=== PATIENT | male | born 1990 | race Caucasian/White ===

== ENCOUNTER 2024-10-19 12:10 | Inpatient (IN) | payer MEDICAID, SELFPAY ==
--- NOTE | ~2024-10-19 | XR_ITS ---
CLINICAL HISTORY: ? aspiration 1 view chest x-ray Comparison: None provided Findings: The lungs are clear. Normal size heart. No acute fracture. IMPRESSION: 1. No acute findings. This document has been electronically signed by: Babatunde Melgar MD on 10/19/2024 14:45:21
--- NOTE | ~2024-10-19 | CT_ITS ---
CLINICAL HISTORY: unknown fall, AMS CT head without contrast Comparison: None provided Findings: No intra-axial mass, midline shift, hydrocephalus, or acute hemorrhage. No significant atrophy-like change or white matter disease. The visualized paranasal sinuses and mastoid air cells are normal. The orbits are within normal limits. There is no acute fracture. Mucosal thickening of the right maxillary sinus. IMPRESSION: No acute intracranial findings identified. Right maxillary sinus disease. This document has been electronically signed by: Babatunde Melgar MD on 10/19/2024 15:18:16
[2024-10-19 12:27] VITALS: BP 144/100; PULSE 86; RESP 20; TEMP 35.8; O2SAT 98; BMI 20.5
[2024-10-19 12:39] VITALS: BP 144/100; PULSE 90; RESP 18; TEMP 36.1; O2SAT 98
--- NOTE | 2024-10-19 12:52 | PC.NURSE ---
patient presented to the ED after being [place] by ems [place]. patient presents to ED unable to participate in much of triage. patient states he drank a lot . patient changed out of clothes into hospital attire, belongings at bedside at this time. patient had episode of vomiting, unsure if aspirated, CXR ordered. patient sat up and cleaned up.
[2024-10-19 13:07] LABS: MANUAL DIFF FLAG NO
[2024-10-19 13:08] LABS: Hematocrit 40.4 % (42.0-52.0); Hemoglobin 14.9 g/dl (14.0-18.0); Imm Gran Abs Auto 0.02 X10*3/uL (0.00-0.03); Imm Gran Pct Auto 0.4 % (0.0-0.4); Lymphocytes Absolute Auto 1.2 X10*3/uL (1.2-4.9); Mean Corpuscular HGB Conc 36.9 g/dl (31.0-36.0); Mean Corpuscular Hemoglobin 33.9 pg (27.0-33.0); Mean Corpuscular Volume 92.0 fL (80.0-98.0); NRBC Abs Auto 0.000 X10*3/uL (0.0-0.012); NRBC Pct Auto 0.0 /100WBC (0.0-0.2); Platelet Count 244 X10*3/uL (160-400); Red Blood Count 4.39 X10*6/uL (4.60-5.80); White Blood Count 5.5 X10*3/uL (4.8-10.8)
--- NOTE | 2024-10-19 13:18 | ECG_ITS ---
Test Reason : ETOH Blood Pressure : */* mmHG Vent. Rate : 94 BPM Atrial Rate : 94 BPM P-R Int : 154 ms QRS Dur : 80 ms QT Int : 348 ms P-R-T Axes : 50 86 57 degrees QTcB Int : 435 ms Normal sinus rhythm Normal ECG No previous ECGs available Referred By: Reyna Washington Electronically Signed By: DUSTY MCMULLEN
--- NOTE | 2024-10-19 13:20 | ED.GENADULT ---
HPI - General Adult General Chief complaint: ETOH/Substance Use Stated complaint: ETOH Time Seen by Provider: 10/19/24 13:17 Source: patient, EMS, RN notes reviewed and old records reviewed Mode of arrival: EMS Limitations: altered mental status History of Present Illness ED Provider: Padmini HPI narrative: Patient is a 34-year-old male with history of alcohol use disorder with alcohol withdrawal, opioid use disorder presenting to the emergency department after being found passed out at a bus stop. Patient altered upon arrival to the emergency department but does report drinking ?a lot. ? He denies drug use. Unable to obtain full HPI due to altered mental status. complaint: Alcohol intoxication Related Data Allergies Allergy/AdvReac Type Severity Reaction Status Date / Time Unable to Assess Allergy Verified 10/19/24 12:29 Review of Systems Review of Systems: As per HPI Yes all other systems are reviewed and are negative Constitutional: Constitutional: Reports as per HPI Neurologic: Reports confusion Psychiatric: Psychiatric: Reports confusion PMFSH Social History Social History Smoked in Last 30 Days: Yes Use of substances other than those prescribed or required for medical reasons: Yes Substance Use Type: Marijuana Substance Use Frequency: Daily Advance Directives: No Advance Directives Information Provided: Yes Do you have a plan to hurt others: No Plan Physical Exam ED Vital Signs: Vital Signs - 24 hr 10/19/24 12:27 10/19/24 12:39 Temperature 96.5 F L 96.9 F Pulse Rate 86 90 Respiratory Rate 20 18 Blood Pressure 144/100 H 144/100 H Pulse Oximetry 98 98 Oxygen Delivery Method Room Air Room Air BMI result Body Mass Index 20.5 Vital signs have been reviewed and appear to be correct. Blood pressure elevated. Heart rate normal. Respiratory rate normal. Temperature normal. Oxygen saturation normal. 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) and lethargic Orientation/consciousness: oriented to person, confusion and lethargic Limitations: altered mental status HENMT Head: Yes normocephalic and Yes atraumatic Ears: hearing grossly normal bilaterally and external ears normal General nose exam: Normal external nose present Face and sinus: Yes face symmetric Mouth: oropharynx normal and moist mucous membranes Throat: Yes uvula midline Eyes Pupils: Equal, round and reactive pupils present Neck Neck: Yes normal visual inspection and Yes supple Resp Effort & Inspection: normal respiratory effort and able to speak in complete sentences Auscultation: clear to auscultation bilaterally Cardio Rate: regular rate Rhythm: regular rhythm Heart sounds: S1 normal heart sound present and S2 normal heart sound present GI Palpation (GI): Soft to palpation and nontender Auscultation: normoactive bowel sounds General: Yes no CVA tenderness Back/Spine/Pelvis Back: no CVA tenderness Skin General skin exam: elasticity normal and turgor normal Neuro General: oriented to person, moves all extremities, no focal motor deficits, CN's II-XI intact bilaterally and confusion Cranial nerves: Yes Equal, round and reactive pupils present Cognition (Neuro): normal cognition Extrem General: Yes full ROM, Yes no pedal edema and Yes no calf tenderness Psych Appearance: disheveled Medications Administered Generic Name Dose Route Start Last Admin Trade Name Freq PRN Reason Stop Dose Admin Phenobarbital Sodium 312 mg 10/19/24 17:00 10/19/24 16:24 Phenobarbital Sodium 130 Mg/Ml Im Once IM 10/19/24 17:01 312 mg ONCE ONE Administration Protocol Discontinued Medications Generic Name Dose Route Start Last Admin Trade Name Freq PRN Reason Stop Dose Admin Potassium Chloride 40 meq 10/19/24 15:57 10/19/24 16:23 Potassium Chloride Packet 20 Meq Packet PO 10/19/24 15:58 40 meq ONCE ONE Administration Medical Decision Making Medical Decision Making MDM Narrative: Patient is a 34-year-old male with history of alcohol use disorder with alcohol withdrawal, opioid use disorder presenting to the emergency department after being found passed out at a bus stop. On exam patient is lethargic, A+Ox1, VS WNL, afebrile, physical exam findings as above. Given reported symptoms and physical exam findings, initial differential includes but is not limited to drug or alcohol intoxication or withdrawal, electrolyte abnormality, ICH. Review of electronic medical records from [facility] reveal that patient was recently seen there the past 2 days for alcohol intoxication. Was admitted on 10/17 but left against medical advice once clinically sober. Return to the emergency department yesterday and was discharged from the ED. shortly after arrival to the ED patient vomited and was noted to be coughing, chest x-ray ordered by RN. Patient repeatedly requesting phenobarbital. Advised patient he is currently intoxicated, will hold off on phenobarbital at this time. Labs notable for ethanol of 293, mildly elevated transaminases and alk phos but denies abdominal pain, mild hypokalemia, PO potassium ordered. X-ray chest notable for no evidence of pneumonia. CT head without evidence of ICH or skull fracture. My interpretation is in agreement with the radiologist's interpretation. RN now stating that patient is again requesting phenobarbital. CIWA of 13, phenobarb, thiamine, IV fluids ordered. Case discussed with Gurjit Holman NP hospitalist who accepts admission. Differential Diagnosis Differential Diagnoses: The differential diagnosis associated with the presentation includes as per [facility] Admission/Observation Consideration of admission/observation: Escalation of care including admission/observation considered Consult Healthcare Provider Management of the patient was discussed with: Hospitalist Lab Data [facility] Lab Attestation statement: I reviewed the patient's lab results. as per [facility] 10/19/24 13:01 10/19/24 13:01 Labs: Lab Results 10/19/24 Range/Units 13:01 WBC 5.5 (4.8-10.8) X10*3/uL RBC 4.39 L (4.60-5.80) X10*6/uL Hgb 14.9 (14.0-18.0) g/dl Hct 40.4 L (42.0-52.0) % MCV 92.0 (80.0-98.0) fL MCH 33.9 H (27.0-33.0) pg MCHC 36.9 H (31.0-36.0) g/dl RDW 13.1 (11.0-16.0) % Plt Count 244 (160-400) X10*3/uL MPV 8.6 L (9.4-12.4) fL Immature Gran % (Auto) 0.4 (0.0-0.4) % Neut % (Auto) 68.1 (45-73) % Lymph % (Auto) 21.2 (20-40) % [place] % (Auto) 9.6 (2-11) % Eos % (Auto) 0.2 (0-4) % Baso % (Auto) 0.5 (0-2) % Lymph # (Auto) 1.2 (1.2-4.9) X10*3/uL [place] # (Auto) 0.5 (0.1-1.2) X10*3/uL Eos # (Auto) 0.0 (0.0-0.4) X10*3/uL Baso # (Auto) 0.0 (0.0-0.2) X10*3/uL Abs Immat Gran (auto) 0.02 (0.00-0.03) X10*3/uL Absolute Neuts (auto) 3.8 (2.0-8.3) x10*3/uL Absolute Nucleated RBC 0.000 (0.0-0.012) X10*3/uL Nucleated RBC % (auto) 0.0 (0.0-0.2) /100WBC Sodium 144 (135-145) mmol/L Potassium 3.1 L (3.3-5.1) mmol/L Chloride 105 (96-108) mmol/L Carbon Dioxide 23 (22-29) mmol/L Anion Gap 19 (12-20) BUN 5 L (9-16) mg/dL Creatinine 0.69 (0.5-1.4) mg/dL Estim Creat Clear Calc 137.1 Estimated GFR > 60 Random Glucose 124 H (60-115) mg/dL Calcium 9.0 (8.4-10.2) mg/dL Magnesium 2.3 (1.6-2.6) mg/dL Total Bilirubin 0.3 (0.0-1.0) mg/dL AST 97 H (5-37) U/L ALT 91 H (0-40) U/L Alkaline Phosphatase 182 H (39-117) U/L Total Protein 7.4 (6.5-8.0) g/dL Albumin 4.5 (3.5-5.0) g/dL Ethyl Alcohol 293 mg/dL Independent Interpretation I performed an independent interpretation of an: Plain X-Ray and CT Scan Interpretation: Chest x-ray without evidence of pneumonia. CT head without evidence of ICH or skull fracture. Radiology Impression Discussion of test interpretation with radiology: I have reviewed the radiologist's reading. Radiologist Impression: 1 view chest x-ray Comparison: None provided Findings: The lungs are clear. Normal size heart. No acute fracture. IMPRESSION: 1. No acute findings. CT head without contrast Comparison: None provided Findings: No intra-axial mass, midline shift, hydrocephalus, or acute hemorrhage. No significant atrophy-like change or white matter disease. The visualized paranasal sinuses and mastoid air cells are normal. The orbits are within normal limits. There is no acute fracture. Mucosal thickening of the right maxillary sinus. IMPRESSION: No acute intracranial findings identified. Right maxillary sinus disease. External Record Review External record reviewed: Inpatient record, Office record and Outpatient record Discharge Plan Discharge Patient Disposition: Admitted As Inpatient Print Language: Canadian
[2024-10-19 13:38] LABS: Anion Gap 19 (12-20)
[2024-10-19 13:42] LABS: Alanine Aminotransferase 91 U/L (0-40); Albumin Level 4.5 g/dL (3.5-5.0); Alkaline Phosphatase 182 U/L (39-117); Aspartate Amino Transferase 97 U/L (5-37); Blood Urea Nitrogen 5 mg/dL (9-16); Calcium 9.0 mg/dL (8.4-10.2); Carbon Dioxide 23 mmol/L (22-29); Chloride 105 mmol/L (96-108); Creatinine Clr Calc Pharmacy 137.1; Estimated Glomerular Filt Rate > 60; Magnesium 2.3 mg/dL (1.6-2.6); Potassium 3.1 mmol/L (3.3-5.1); Sodium 144 mmol/L (135-145); Total Protein 7.4 g/dL (6.5-8.0)
--- NOTE | 2024-10-19 13:44 | MHC.EDTECH ---
EKG done by Devin hansenchief knowledge officer
--- OUTSIDE RECORDS SUMMARY | 2024-10-19 15:30 | XMS_ITS | Clinical Summary ---
Author Organization [employer] Address [address] [place] [address] [address] [place] [address] Care Team Providers Care Pastry Baker Name Role Phone Marvin Pérez MD Primary Care Provider [phone] Allergies No known active allergies Medications nicotine polacrilex (Commit) 4 MG lozengeIndicati ons:Smoking Dissolve 1 lozenge (4 mg) in the mouth every 2 (two) hours if needed for smoking cessation. 100 lozenge 02/27/2023 Active famotidine (Pepcid) 20 MG tabletIndicatio ns:Epigastric pain Take 1 tablet (20 mg) by mouth 2 times daily. 60 tablet 11 10/04/2023 Active Active Problems No known active problems Encounters Date Type Department Care Team Description 08/01/[address] [facility] MEDICINE [address] [place] [address] Marvin Pérez MD Nurse Triage 07/23/[address] [facility] PEDS [address] [place] [address] Marvin Pérez MD Nurse Triage from Last 3 Months Immunizations Immunization Administration Dates Next Due Tdap 08/16/2016 Family History Medical History Relation Name Comments Heart attack Father No Known Problems Maternal Grandfather Alcohol abuse Mother Cirrhosis Mother Depression Mother Relation Name Status Comments Father Maternal Grandfather Mother Social History Tobacco Use Types Packs/Day Years Used Date Smoking Tobacco: Every Day Cigarettes 1 15 Smokeless Tobacco: Never Tobacco Cessation:Ready to Q uit: Yes; Counseling Given: Yes Depression Answer Date Recorded Patient Health Questionnaire-9 Score 2 02/27/2023 Patient Health Questionnaire-9 Score 2 02/27/2023 Last PHQ-9: Questionnaire Data Not on file 0 02/27/2023 Housing Stability Answer Date Recorded What is your housing situation today? I have clementina sandhu 02/26/[address] you li ve. Do you have problems with any of the following? None of the above 02/26/2023 Food Insecurity Answer Date Recorded Within the past 12 months, y ou worried that your food would run out before you got money to buy more: Never True 02/26/2023 Within the past 12 months,th e food you bought just didn't last and you didn't have enough money to get more: Never True Transportation Answer Date Recorded In the past 12 months, has l ack of transportation kept you from medical appts, meetings, work or from getting things needed for daily living? No 02/26/2023 Utilities Answer Date Recorded In the past 12 months, has t he electric, gas, oil or water company threatened to shut off services in your home? No 02/26/2023 Depression Answer Date Recorded Patient Health Questionnaire-2 Score 0 02/27/2023 Sex and Gender Information Value Date Recorded Sex Assigned at Male 12/05/2021 10:31 AM EDT Legal Sex Male 10:31 AM EDT Gender Identity Male 12/05/2021 10:31 AM EDT Sexual Orientation Straight 12/05/2021 10 :31 AM EDT Last Filed Vital Signs Vital Sign Reading Time Taken Comments Blood Pressure 150/89 10/04/2023 10:32 AM EDT Pulse 114 10/04/2023 10:32 AM EDT Temperature 36.7 C (98 F) 10/04/2023 10:32 AM EDT Respiratory Rate 14 10/04/2023 10:32 AM EDT Oxygen Saturation 98% 10/04/2023 10:32 AM EDT Inhaled Oxygen Concentration - - Weight 76.7 kg (169 lb 3.2 oz) 10/04/2023 10:32 AM EDT Height 167.6 cm (5' 6 ) 10/04/2023 10:32 AM EDT Body Mass Index 27.31 10/04/2023 10:32 AM EDT Plan of Treatment Health Maintenance Due Date Last Done Comments HIV Screening 1989 Lipid Panel 1989 Disability Screening 1989 Alcohol/Substance Use Screening 2001 Family Planning (PISQ) 2004 HPV Vaccines (1 - Male 3-dos e series) 2004 Hepatitis C Screening 08/01/2007 Hepatitis B Vaccines (1 of 3 - 19+ 3-dose series) 2008 Pneumococcal Vaccine: Pediatrics (0 to 5 Years) and At-Risk Patients (6 to 49) Years (1 of 2 - PCV) 2008 SDOH Screening 02/27/2024 02/26/2023 Depression Screening 02/28/2024 02/27/2023, 02/27/2023 Tobacco Screening 10/03/2024 10/04/2023 COVID-19 Vaccine (1 - 2023-2 5 season) 2024 Influenza Vaccine (#1) 2024 DTaP/Tdap/Td Vaccines (2 - T d or Tdap) 08/16/2026 08/16/2016 Zoster Vaccines (1 of 2) 08/01/2039 RSV Patients and Patients Aged 60 years or older (1 - 1-dose 75+ series) 2064 HIB Vaccines Aged Out No longer eligi ble based on patient's age to complete this topic Hepatitis A Vaccines Aged Out No long er eligible based on patient's age to complete this topic IPV Vaccines Aged Out No longer eligi ble based on patient's age to complete this topic Meningococcal B Vaccine Aged Out No l onger eligible based on patient's age to complete this topic Meningococcal Vaccine Aged Out No xenia ehsan eligible based on patient's age to complete this topic RSV under 20 months Aged Out No longe r eligible based on patient's age to complete this topic Rotavirus Vaccines Aged Out No longer eligible based on patient's age to complete this topic Insurance [facility] C3 Care Teams Pastry Baker Relationship Specialty Start Date End Date Marvin Pérez MD [address] [place] [id number] PCP - General Internal Medicine 08/20/19
[2024-10-19] MEDS: Potassium Chloride Packet 20 MEQ PACKET 40 MEQ PO (16:23)
[2024-10-19] MEDS: PHENobarbitaL sodium 130 MG/ML IM ONCE 312 MG IM (16:24)
--- NOTE | 2024-10-19 16:39 | P.HPHOSP_ITS ---
History of Present Illness Date of Service: 10/19/24 Chief Complaint: alcohool withdrawal 34 year old male with opioid use desorder, alcohol dependence found unresponsive at Bus stop and vomitted on presentation. CT head negative. Alcohol level is 293. He is now awake and alert and reportedly has a CIWA of 13. He admit to drink a sleeve of hard liquor a day and uses heroin, doesn't work and ask people for money. He was seen at [facility] yesterday 10/18/24 with abdominal pain and discharged after unremarkable work up. The prior on 10/17/24, he was admitted at [facility] for alcohol withdrawal and hypokalemia but left AMA. Following the vomiting, a CXR revealed no acute finding. He is initiated on Phenobarbital for alcohol withdrawal Review of Systems 2 Review of Systems: Gen: no fever Resp: no sob, no cough CV: no chest, no RICKETTS, no leg edema GI: No n/v, no abd pain Neuro: No confusion, no tremors noted, denies prior seizures PMFSH Social History Smoked in Last 30 Days: Yes Use of substances other than those prescribed or required for medical reasons: Yes Substance Use Type: Marijuana Substance Use Frequency: Daily Advance Directives: No Advance Directives Information Provided: Yes Do you have a plan to hurt others: No Plan Meds Allergies Allergy/AdvReac Type Severity Reaction Status Date / Time Unable to Assess Allergy Verified 10/19/24 12:29 Active Medications: Current Medications Sodium Chloride (Ns) 1,000 mls @ 999 mls/hr IV .Q1H1M ISABELLA Stop: 10/19/24 17:00 Pharmacy Consult (Consult Rx Etoh Phenob Im/Po) 1 each MISCELLANE ONCE PRN; Protocol PRN Reason: Consult order Phenobarbital (Phenobarbital 15 Mg Tablet) 45 mg PO BID [facility]; Protocol Stop: 10/21/24 21:01 Phenobarbital (Phenobarbital 30 Mg Tablet) 30 mg PO BID [facility]; Protocol Stop: 10/23/24 21:01 Phenobarbital (Phenobarbital 30 Mg Tablet) 30 mg PO DAILY [facility]; Protocol Stop: 10/25/24 09:01 Phenobarbital Sodium (Phenobarbital Sodium 130 Mg/Ml Im Once) 312 mg IM ONCE ONE; Protocol Stop: 10/19/24 17:01 Last Admin: 10/19/24 16:24 Dose: 312 mg Phenobarbital Sodium (Phenobarbital Sodium 130 Mg/Ml Vial Im Q3hx2) 234 mg IM Q3H ISABELLA; Protocol Stop: 10/19/24 23:01 Physical Exam 2 Vital Signs and Narrative: Vital Signs: Last Vital Signs Temp 96.9 F 10/19/24 12:39 Pulse 90 10/19/24 12:39 Resp 18 10/19/24 12:39 BP 144/100 H 10/19/24 12:39 Pulse Ox 98 10/19/24 12:39 O2 Del Method Room Air 10/19/24 12:39 BMI result Body Mass Index 20.5 Const: Other: Constitutional: Alert, in no distress, a bit sweaty Mental Status: Oriented to person, place and time. Eyes: Pupils are equal, round and reactive to light. Ear, Nose and Throat: Oropharynx clear, mucous membranes moist. Ears and nose without deformities. Trachea midline. Respiratory: Clear to auscultation. No wheezing, rales or rhonchi. Cardiovascular: S1 S2 regular. No murmurs, rubs or gallops. Gastrointestinal: Abdomen soft, non-tender, non-distended. Normal bowel sounds.? Neurologic: Cranial nerves II-XII grossly intact. No focal neurological deficits. Moves all extremities spontaneomusly.?mild tremors Skin: No rashes or lesions.? Musculoskeletal: No cyanosis or clubbing. Psychiatric: Normal mood and affect? Results Labs 10/19/24 13:01 10/19/24 13:01 Labs: Laboratory Results - last 24 hr 10/19/24 13:01 MCV 92.0 MCH 33.9 H MCHC 36.9 H RDW 13.1 Plt Count 244 MPV 8.6 L Immature Gran % (Auto) 0.4 Neut % (Auto) 68.1 Lymph % (Auto) 21.2 [place] % (Auto) 9.6 Eos % (Auto) 0.2 Baso % (Auto) 0.5 Lymph # (Auto) 1.2 [place] # (Auto) 0.5 Eos # (Auto) 0.0 Baso # (Auto) 0.0 Abs Immat Gran (auto) 0.02 Absolute Neuts (auto) 3.8 Absolute Nucleated RBC 0.000 Nucleated RBC % (auto) 0.0 Anion Gap 19 Estim Creat Clear Calc 137.1 Estimated GFR > 60 Random Glucose 124 H Calcium 9.0 Magnesium 2.3 Total Bilirubin 0.3 AST 97 H ALT 91 H Alkaline Phosphatase 182 H Total Protein 7.4 Albumin 4.5 Ethyl Alcohol 293 Assessment and Plan (1) Alcoholic intoxication: Status: Acute (2) Hypokalemia: Status: Acute (3) Alcohol withdrawal: Status: Acute Plan 34/m with OUD, alcohol dependence here with alcohol intoxication, early withdrawal and mild hypokalemia Alcohol withdrawal, high risk for DT Phenobarbital per protocol Thiamine and folate replacement Addiction med consult HypOkalemia, 3.1 replaced, repeat tomorrow Elevated LFTs, likely from alcohol use, similar to [facility] [place], not overt withdrawal at this time Utox Addiction med as above. DVT prophylaxis: lovneox Full code Regular diet Quality Stroke Does the patient have a stroke diagnosis?: No VTE Prior VTE?: No VTE Risk Level:: Medical - moderate - high VTE Device Contraindication: Treatment Not Indicated VTE Drug Contraindication: N/A - Med Ordered
[2024-10-19] MEDS: Thiamine HCL 100 MG in 0.9 % Sodium Chloride 100 ML 202 MG IV (16:40)
[2024-10-19 17:26] VITALS: BP 148/94; PULSE 78; RESP 26; O2SAT 100
--- NOTE | 2024-10-19 18:17 | PHA.MEDREC ---
Addendum entered by Ry Wilson, PharmCristina 10/19/24 18:26: MED REC CHECKED BY [facility] Original Note: Pharmacy Consult ? Medication Reconciliation Pharmacy has completed the medication reconciliation.
[2024-10-19] MEDS: Lactated Ringers 1,000 ML 100 ML IVCONT (18:21)
[2024-10-19 19:03] LABS: Appearance Urine Clear; Glucose Urine UA Negative (Negative); PH 7.0 (5.0-9.0); Specific Gravity - Urine <= 1.005 (1.005-1.025)
[2024-10-19 19:11] LABS: Cannabinoid Screen Urine Not Detected (Not Detect)
[2024-10-19 19:45] VITALS: BP 134/85; PULSE 86; RESP 20; TEMP 37.2; O2SAT 98
[2024-10-19] MEDS: PHENobarbitaL sodium 130 MG/ML VIAL IM Q3Hx2 234 MG IM ×2 (20:00→23:05)
[2024-10-19 21:01] VITALS: BMI 19.8
[2024-10-19 21:21] VITALS: BP 145/82; PULSE 66; RESP 18; TEMP 37.2; O2SAT 99
[2024-10-19 23:00] VITALS: BP 147/95; PULSE 75
[2024-10-20 03:24] VITALS: BP 137/89; PULSE 55; RESP 18; TEMP 36.2; O2SAT 100
[2024-10-20] MEDS: Lactated Ringers 1,000 ML 100 ML IVCONT ×2 (04:52→14:23)
--- NOTE | 2024-10-20 06:34 | PC.NURSE ---
RN unable to obtain surgical history from patient. Pt was in and out of sleep answering very few questions. Oncoming nurse made aware.
[2024-10-20 07:27] VITALS: BP 123/79; PULSE 66; RESP 16; TEMP 36.6; O2SAT 99
[2024-10-20] MEDS: 0.9 % Sodium Chloride Flush 3 ML SYRINGE IVFLUSH (07:36)
[2024-10-20 09:03] LABS: Anion Gap 11 (12-20); Blood Urea Nitrogen 5 mg/dL (9-16); Calcium 8.3 mg/dL (8.4-10.2); Carbon Dioxide 27 mmol/L (22-29); Chloride 105 mmol/L (96-108); Creatinine Clr Calc Pharmacy 144.9; Estimated Glomerular Filt Rate > 60; Potassium 3.3 mmol/L (3.3-5.1); Sodium 140 mmol/L (135-145)
--- NOTE | 2024-10-20 10:22 | P.PNIM_ITS ---
Subjective Subjective Date of Service: 10/20/24 Interval History: f/u alcohol withdrawal CIWA 7, minimal tremors, mild sweating Review of Systems Gen: no fever Resp: no sob, no cough CV: no chest, no RICKETTS, no leg edema GI: No n/v, no abd pain Neuro: No confusion, no tremors noted, denies prior seizures Physical Exam 2 Vital Signs: Vital Signs: Last Vital Signs Temp 97.9 F 10/20/24 07:27 Pulse 66 10/20/24 07:27 Resp 16 10/20/24 07:27 BP 123/79 10/20/24 07:27 Pulse Ox 99 10/20/24 07:27 O2 Del Method Room Air 10/20/24 07:27 BMI result Body Mass Index 19.8 Objective Data Active Medications Acetaminophen (Acetaminophen 325 Mg Tablet) 650 mg PO Q6H PRN PRN Reason: Pain, Mild 1-3,fever,headache Calcium Carbonate (Calcium Carbonate 750 Mg Tab.Chew) 750 mg PO Q4H PRN PRN Reason: Heartburn Clonidine HCl (Clonidine Hcl 0.1 Mg Tablet) 0.1 mg PO TID PRN; Protocol PRN Reason: Opiate Withdrawal Last Admin: 10/20/24 09:17 Dose: 0.1 mg Documented By: DHRUV Enoxaparin Sodium (Enoxaparin Sodium 40 Mg/0.4 Ml Syringe) 40 mg SUBCUT DAILY [facility] Last Admin: 10/20/24 07:35 Dose: 40 mg Documented By: DHRUV Folic Acid (Folic Acid 1 Mg Tablet) 1 mg PO DAILY [facility] Stop: 10/22/24 09:01 Last Admin: 10/20/24 07:35 Dose: 1 mg Documented By: DHRUV Hydroxyzine HCl (Hydroxyzine Hcl 25 Mg Tablet) 25 mg PO Q6H PRN PRN Reason: Anxiety Last Admin: 10/20/24 07:35 Dose: 25 mg Documented By: DHRUV Lactated Ringer's (Lr) 1,000 mls @ 100 mls/hr IVCONT .Q10H [facility] Last Admin: 10/20/24 04:52 Dose: 100 mls/hr Documented By: REBA Magnesium Hydroxide (Milk Of Magnesia 30 Ml Oral.Susp) 30 ml PO DAILY PRN PRN Reason: Constipation Melatonin (Melatonin 3 Mg Tablet) 6 mg PO BEDTIME PRN PRN Reason: Insomnia Ondansetron HCl (Ondansetron Hcl 4 Mg/2 Ml Vial) 4 mg IVPUSH Q8H PRN PRN Reason: Nausea and Vomiting Last Admin: 10/20/24 09:17 Dose: 4 mg Documented By: DHRUV Pharmacy Consult (Consult Rx Etoh Phenob Im/Po) 1 each MISCELLANE ONCE PRN; Protocol PRN Reason: Consult order Phenobarbital (Phenobarbital 15 Mg Tablet) 45 mg PO BID [facility]; Protocol Stop: 10/21/24 21:01 Last Admin: 10/20/24 07:35 Dose: 45 mg Documented By: DHRUV Phenobarbital (Phenobarbital 30 Mg Tablet) 30 mg PO BID [facility]; Protocol Stop: 10/23/24 21:01 Phenobarbital (Phenobarbital 30 Mg Tablet) 30 mg PO DAILY [facility]; Protocol Stop: 10/25/24 09:01 Sodium Chloride (0.9 % Sodium Chloride Flush 3 Ml Syringe) [facility] Last Admin: 10/20/24 07:36 Dose: 3 ml Documented By: DHRUV Thiamine HCl (Thiamine Hcl 100 Mg Tablet) 100 mg PO DAILY [facility] Stop: 10/22/24 09:01 Last Admin: 10/20/24 07:35 Dose: 100 mg Documented By: DHRUV Labs 10/19/24 13:01 10/20/24 08:29 Labs: Laboratory Results - last 24 hr 10/19/24 10/19/24 10/20/24 13:01 18:55 08:29 MCV 92.0 MCH 33.9 H MCHC 36.9 H RDW 13.1 Plt Count 244 MPV 8.6 L Immature Gran % (Auto) 0.4 Neut % (Auto) 68.1 Lymph % (Auto) 21.2 [place] % (Auto) 9.6 Eos % (Auto) 0.2 Baso % (Auto) 0.5 Lymph # (Auto) 1.2 [place] # (Auto) 0.5 Eos # (Auto) 0.0 Baso # (Auto) 0.0 Abs Immat Gran (auto) 0.02 Absolute Neuts (auto) 3.8 Absolute Nucleated RBC 0.000 Nucleated RBC % (auto) 0.0 Hold Purple Top SEE NOTE Anion Gap 19 11 L Estim Creat Clear Calc 137.1 144.9 Estimated GFR > 60 > 60 Random Glucose 124 H 118 H Calcium 9.0 8.3 L D Magnesium 2.3 Total Bilirubin 0.3 AST 97 H ALT 91 H Alkaline Phosphatase 182 H Total Protein 7.4 Albumin 4.5 Urine Color Yellow Urine Appearance Clear Urine pH 7.0 Ur Specific [place] <= 1.005 Urine Protein Negative Urine Glucose (UA) Negative Urine Ketones Negative Urine Blood Negative Urine Nitrite Negative Ur Leukocyte Esterase Negative Urine Opiates Screen POSITIVE H Ur Buprenorphine Scrn Not Detected Ur Oxycodone Screen Not Detected Urine Methadone Screen Not Detected Urine Fentanyl Screen POSITIVE H Ur Barbiturates Screen POSITIVE H Ur Phencyclidine Scrn Not Detected Ur Amphetamines Screen Not Detected U Benzodiazepines Scrn POSITIVE H Urine Cocaine Screen Not Detected U Marijuana (THC) Screen Not Detected Ethyl Alcohol 293 Assessment and Plan (1) Alcoholic intoxication: Status: Acute (2) Alcohol withdrawal: Status: Acute (3) Hypokalemia: Status: Acute Plan 34/m with OUD, alcohol dependence here with alcohol intoxication, early withdrawal and mild hypokalemia Alcohol withdrawal, high risk for DT, Phenobarbital per protocol Thiamine and folate replacement Addiction med consult CIWA Abstinence discsused HypOkalemia, 3.1 replaced and normal Elevated LFTs, likely from alcohol use, similar to [facility] check Hep B, C profile OUD, not overt withdrawal at this time Utox Addiction med as above. DVT prophylaxis: lovneox Full code Regular diet Quality Stroke Does the patient have a stroke diagnosis?: No VTE Prior VTE?: No VTE Risk Level:: Medical - moderate - high VTE Device Contraindication: Treatment Not Indicated VTE Drug Contraindication: N/A - Med Ordered
[2024-10-20 12:17] LABS: HBS Num1 71.45 mIU/mL (0-7.99); HBc Num1 0.08 S/CO (0.00-0.79); HBsAGNum1 0.44 S/CO (0.00-0.99); Hepatitis B Surface Antigen Negative (Negative); ~HepC Num1 0.06 S/CO (0.00-0.79); ~Hepatitis B Surface Antibody REACTIVE (Nonreactive); ~Hepatitis C Antibody Nonreactive (Nonreactive)
--- NOTE | 2024-10-20 12:37 | HO.ADDICT_ITS ---
History of Present Illness Date of Service: 10/20/2024 Chief Complaint: Alcohol intoxication, Alcohol withdrawal Reason for Consult: AUD withdrawal and OUD Sources of Information: patient interviewed and chart reviewed HPI Narrative: Patient is a 34 year old male who presented to [facility] ED c/o abdominal pain and acute alcohol withdrawal. Found to have hypokalemia, medically admitted and started on phenobarbital taper. Per admission note, patient was seen last week at [facility] for similar presentation and left via self directed discharge. Patient seen in room 377. He is awake, alert, engaged in interview. Irritable affect. Reporting body aches, chills, goosebumps, anxiety. He states he last used opiates 7 days ago. Discussed MOUD, to address withdrawal sx, and patient emphatically declines and upset that this has been offered more than once. He states that he wants to increase his phenobarbital so that he can be knocked out. I want to sleep through this, I just need medicine so I can sleep through this . T/w advised patient that this would not be possible or appropriate to address opiate withdrawal sx, however comfort medications could be added. Patient agreeable. He appears uncomfortable and exhibiting withdrawal sx that he reported. Slight tremor noted. Of note, he believes that he has been here three days--t/w reoriented patient by showing him his ID bracelet which shows date of admission (10/19/24). T/W advised patient that should he change his mind, either buprenorphine or methadone could be started to address withdrawal sx. while here. Labs reviewed UDS +fentanyl ETOH level 293 LFTs elevated Medical Evaluation Reviewed: Yes Review of Systems Constitutional: Reports as per HPI Diagnostics Vital Signs (24Hr): Vital Signs - 24 hr 10/19/24 12:39 10/19/24 17:26 10/19/24 19:45 Temperature 96.9 F 99.0 F Pulse Rate 90 78 86 Respiratory Rate 18 26 H 20 Blood Pressure 144/100 H 148/94 H 134/85 Pulse Oximetry 98 100 98 Oxygen Delivery Method Room Air Room Air Room Air 10/19/24 21:21 10/19/24 23:00 10/20/24 03:24 Temperature 99.0 F 97.2 F Pulse Rate 66 75 55 Respiratory Rate 18 18 Blood Pressure 145/82 H 147/95 H 137/89 Pulse Oximetry 99 100 Oxygen Delivery Method Room Air Room Air 10/20/24 07:27 Temperature 97.9 F Pulse Rate 66 Respiratory Rate 16 Blood Pressure 123/79 Pulse Oximetry 99 Oxygen Delivery Method Room Air BMI result Body Mass Index 19.8 Labs 10/19/24 13:01 10/20/24 08:29 Labs: Laboratory Results - last 48 hr 10/19/24 10/19/24 10/20/24 13:01 18:55 08:29 WBC 5.5 RBC 4.39 L Hgb 14.9 Hct 40.4 L MCV 92.0 MCH 33.9 H MCHC 36.9 H RDW 13.1 Plt Count 244 MPV 8.6 L Immature Gran % (Auto) 0.4 Neut % (Auto) 68.1 Lymph % (Auto) 21.2 [place] % (Auto) 9.6 Eos % (Auto) 0.2 Baso % (Auto) 0.5 Lymph # (Auto) 1.2 [place] # (Auto) 0.5 Eos # (Auto) 0.0 Baso # (Auto) 0.0 Abs Immat Gran (auto) 0.02 Absolute Neuts (auto) 3.8 Absolute Nucleated RBC 0.000 Nucleated RBC % (auto) 0.0 Hold Purple Top SEE NOTE Sodium 144 140 Potassium 3.1 L 3.3 Chloride 105 105 Carbon Dioxide 23 27 Anion Gap 19 11 L BUN 5 L 5 L Creatinine 0.69 0.63 Estim Creat Clear Calc 137.1 144.9 Estimated GFR > 60 > 60 Random Glucose 124 H 118 H Calcium 9.0 8.3 L D Magnesium 2.3 Total Bilirubin 0.3 AST 97 H ALT 91 H Alkaline Phosphatase 182 H Total Protein 7.4 Albumin 4.5 Urine Color Yellow Urine Appearance Clear Urine pH 7.0 Ur Specific [place] <= 1.005 Urine Protein Negative Urine Glucose (UA) Negative Urine Ketones Negative Urine Blood Negative Urine Nitrite Negative Ur Leukocyte Esterase Negative Urine Opiates Screen POSITIVE H Ur Buprenorphine Scrn Not Detected Ur Oxycodone Screen Not Detected Urine Methadone Screen Not Detected Urine Fentanyl Screen POSITIVE H Ur Barbiturates Screen POSITIVE H Ur Phencyclidine Scrn Not Detected Ur Amphetamines Screen Not Detected U Benzodiazepines Scrn POSITIVE H Urine Cocaine Screen Not Detected U Marijuana (THC) Screen Not Detected Ethyl Alcohol 293 Hep Bs Antigen Hep Bs Antibody Hep B Core Total Ab Hepatitis C Ab (EIA) 10/20/24 11:16 WBC RBC Hgb Hct MCV MCH MCHC RDW Plt Count MPV Immature Gran % (Auto) Neut % (Auto) Lymph % (Auto) [place] % (Auto) Eos % (Auto) Baso % (Auto) Lymph # (Auto) [place] # (Auto) Eos # (Auto) Baso # (Auto) Abs Immat Gran (auto) Absolute Neuts (auto) Absolute Nucleated RBC Nucleated RBC % (auto) Hold Purple Top Sodium Potassium Chloride Carbon Dioxide Anion Gap BUN Creatinine Estim Creat Clear Calc Estimated GFR Random Glucose Calcium Magnesium Total Bilirubin AST ALT Alkaline Phosphatase Total Protein Albumin Urine Color Urine Appearance Urine pH Ur Specific [place] Urine Protein Urine Glucose (UA) Urine Ketones Urine Blood Urine Nitrite Ur Leukocyte Esterase Urine Opiates Screen Ur Buprenorphine Scrn Ur Oxycodone Screen Urine Methadone Screen Urine Fentanyl Screen Ur Barbiturates Screen Ur Phencyclidine Scrn Ur Amphetamines Screen U Benzodiazepines Scrn Urine Cocaine Screen U Marijuana (THC) Screen Ethyl Alcohol Hep Bs Antigen Negative Hep Bs Antibody REACTIVE Hep B Core Total Ab Nonreactive Hepatitis C Ab (EIA) Nonreactive Mental Status Exam Mental Status Exam Patient Appearance: Perspiring Level of Consciousness: Awake and Alert Patient Behavior: Guarded (irritable ) Affect Description: Blunted Speech Pattern: Clear Hallucinations: None Judgement: Fair Medications Medications Current Medications Acetaminophen (Acetaminophen 325 Mg Tablet) 650 mg PO Q6H PRN PRN Reason: Pain, Mild 1-3,fever,headache Calcium Carbonate (Calcium Carbonate 750 Mg Tab.Chew) 750 mg PO Q4H PRN PRN Reason: Heartburn Clonidine HCl (Clonidine Hcl 0.1 Mg Tablet) 0.1 mg PO TID PRN; Protocol PRN Reason: Opiate Withdrawal Last Admin: 10/20/24 09:17 Dose: 0.1 mg Enoxaparin Sodium (Enoxaparin Sodium 40 Mg/0.4 Ml Syringe) 40 mg SUBCUT DAILY [facility] Last Admin: 10/20/24 07:35 Dose: 40 mg Folic Acid (Folic Acid 1 Mg Tablet) 1 mg PO DAILY [facility] Stop: 10/22/24 09:01 Last Admin: 10/20/24 07:35 Dose: 1 mg Gabapentin (Gabapentin 100 Mg Capsule) 200 mg PO TID [facility] Hydroxyzine HCl (Hydroxyzine Hcl 25 Mg Tablet) 25 mg PO Q6H PRN PRN Reason: Anxiety Last Admin: 10/20/24 07:35 Dose: 25 mg Lactated Ringer's (Lr) 1,000 mls @ 100 mls/hr IVCONT .Q10H [facility] Last Admin: 10/20/24 04:52 Dose: 100 mls/hr Magnesium Hydroxide (Milk Of Magnesia 30 Ml Oral.Susp) 30 ml PO DAILY PRN PRN Reason: Constipation Melatonin (Melatonin 3 Mg Tablet) 6 mg PO BEDTIME PRN PRN Reason: Insomnia Ondansetron HCl (Ondansetron Hcl 4 Mg/2 Ml Vial) 4 mg IVPUSH Q8H PRN PRN Reason: Nausea and Vomiting Last Admin: 10/20/24 09:17 Dose: 4 mg Pharmacy Consult (Consult Rx Etoh Phenob Im/Po) 1 each MISCELLANE ONCE PRN; Protocol PRN Reason: Consult order Phenobarbital (Phenobarbital 15 Mg Tablet) 45 mg PO BID [facility]; Protocol Stop: 10/21/24 21:01 Last Admin: 10/20/24 07:35 Dose: 45 mg Phenobarbital (Phenobarbital 30 Mg Tablet) 30 mg PO BID [facility]; Protocol Stop: 10/23/24 21:01 Phenobarbital (Phenobarbital 30 Mg Tablet) 30 mg PO DAILY [facility]; Protocol Stop: 10/25/24 09:01 Sodium Chloride (0.9 % Sodium Chloride Flush 3 Ml Syringe) 3 ml IVFLUSH QSHIFT [facility] Last Admin: 10/20/24 07:36 Dose: 3 ml Thiamine HCl (Thiamine Hcl 100 Mg Tablet) 100 mg PO DAILY [facility] Stop: 10/22/24 09:01 Last Admin: 10/20/24 07:35 Dose: 100 mg Allergies Allergies Allergy/AdvReac Type Severity Reaction Status Date / Time Unable to Assess Allergy Verified 10/19/24 12:29 Assessment & Plan Assessment & Plan (1) Opiate withdrawal: Status: Acute Code(s): F11.93 - Opioid use, unspecified with withdrawal Assessment and Plan: * patient declines MOUD--buprenorphine and methadone * agreeable to comfort meds--clonidine and hydroxyzine in place already, added scheduled gabapentin 200mg TID * tylenol for body aches * request for increase in phenobarbital not appropriate or indicated to address opiate withdrawal sx * if patient changes his mind and is agreeable he can have 10mg methadone PRN Q4 max of 4 doses. (2) Alcohol withdrawal: Status: Acute Code(s): F10.939 - Alcohol use, unspecified with withdrawal, unspecified Assessment and Plan: * pheno taper in place. CIWA scores likely impacted by concurrent opiate withdrawal sx. * gabapentin added to address anxiety and restlessness. --hold if concern for oversedation Total time managing care of this patient today _35___ minutes. [facility] Past Medical History Medical History (Updated 10/20/24 @ 12:38 by Glory Estrada CNP) Alcohol use Opioid use Social History Social History (Updated 10/19/24 @ 22:37 by Liza Leyva RN) Household Members: Friend(s) Housing: Apartment Do you presently have visiting nurse or other home services: No Patient Tobacco Use Status: Current everyday Tobacco user Tobacco use type: Cigarette Cigarette Packs Per Day: 1 Cigarettes Per Day: 20.0 Use of substances other than those prescribed or required for medical reasons: Yes Substance Use Type: Heroin and Marijuana
[2024-10-20 15:01] VITALS: BP 120/76; PULSE 62; RESP 18; TEMP 36.5; O2SAT 98
[2024-10-20] MEDS: methADONE HCl 20 MG/2 ML ORAL.CONC 10 MG PO ×2 (15:05→18:35)
[2024-10-20] MEDS: methADONE HCl 20 MG/2 ML ORAL.CONC 15 MG PO (16:09)
[2024-10-20 19:23] VITALS: BP 124/77; PULSE 67; RESP 18; TEMP 36.4; O2SAT 98
[2024-10-21] MEDS: methADONE HCl 20 MG/2 ML ORAL.CONC 10 MG PO (00:40)
[2024-10-21] MEDS: Lactated Ringers 1,000 ML 100 ML IVCONT (00:44)
[2024-10-21 03:30] VITALS: BP 130/77; PULSE 51; RESP 18; TEMP 36.1; O2SAT 97
[2024-10-21 06:37] VITALS: BP 126/74
[2024-10-21 07:16] VITALS: BP 118/77; PULSE 58; RESP 16; TEMP 36; O2SAT 97
--- NOTE | 2024-10-21 14:55 | PM.DS ---
DS: Providers Provider Date of Service: 10/21/24 Date of admission: 10/19/24 16:23 Date of discharge: 10/21/24 Primary care physician: Marvin Pérez MD Consults: 10/19/24 16:52 Addiction Medicine Provider Routine Consulting Provider: Addiction Covering Reason for consultation: OUD, alcohol dependenc Has provider been notified: No DS: Diagnosis Discharge Diagnosis (1) Opiate withdrawal: Status: Acute (2) Alcohol withdrawal: Status: Acute DS: Summary Hospital Course Hospital Course: 34 year old male with opioid use desorder, alcohol dependence found unresponsive at Bus stop and vomitted on presentation. CT head negative. Alcohol level is 293. He is now awake and alert and reportedly has a CIWA of 13. He admit to drink a sleeve of hard liquor a day and uses heroin, doesn't work and ask people for money. He was seen at [facility] yesterday 10/18/24 with abdominal pain and discharged after unremarkable work up. The prior on 10/17/24, he was admitted at [facility] for alcohol withdrawal and hypokalemia but left AMA. Following the vomiting, a CXR revealed no acute finding. He was initiated on Phenobarbital for alcohol withdrawal. This morning, the patient reports that he wanted to leave against medical advice. On evaluating the patient, he had refused blood work this morning; counseled regarding his prior hypokalemia hypomagnesemia - and the need to evaluated further. The patient declined further blood work or evaluation. He wished to be discharged home - reports he wanted to leave the hospital to inhaled/inject heroin. Counseled the patient on remaining inpatient, and offered assistance with addiction medicine support, and other medications to treat withdrawal from both ETOH and opioids. The patient was alert and oriented to person place time and situation. He understands the risks of leaving against medical advice, including possible significant morbidity and mortality, including . The patient understands that continuing to ingested bleach drugs poses a significant risk to his life. Counseled regarding use of Narcan and carrying Narcan with him. Patient expresses understanding. He understands the decision that he is making is impulsive, however he wants to carried through and leave the hospital against medical advice. The patient declined further services or supports, and left the hospital against medical advice. Status at Discharge Functional status at discharge: independent ambulation Overall status at discharge: patient is not back to baseline Time Attestation Total time managing care of this patient today: 45 mintues. Discharge Coordination Time (in mins): 15 Quality: Safe Use of Opioids Does Pt have an Active Cancer Diagnosis on the Problem List?: No Quality: Stroke Does the patient have a stroke diagnosis?: No Physical Exam Exam: Exam: General: A&O x3, oriented to time place person and situation, comfortable, no pain. Cardiac: S1, S2 auscultated with no S3/4, no MRG. Well perfused. Respiratory: Normal breath sounds auscultated throughout all lung zones, without wheezing, rales. Normal rate. GI/ : No abdominal pain on palpation, no masses or distentions. MSK: Normal ambulation without pain at bony prominences or musculature Neurological: Normal neurological examination on overview, without obvious CN II-XII abnormalities. Vital Signs: Vital Signs: Last Vital Signs Temp 96.8 F 10/21/24 07:16 Pulse 58 10/21/24 07:16 Resp 16 10/21/24 07:16 BP 118/77 10/21/24 07:16 Pulse Ox 97 10/21/24 07:16 O2 Del Method Room Air 10/21/24 07:16 BMI result Body Mass Index 19.8 Discharge Plan Discharge Patient Disposition: Left Against Medical Advice Discharge Diagnosis: Acute alcohol intoxication, substance use disorder with heroin, hypokalemia, hypomagnesemia Referrals: Marvin Pérez MD [Primary Care Provider, Medical] - 1 Week Discharge Medications: No Action No Known Home Meds Discharge Orders: Discharge Order (Routine); Ordered 10/21/24 Ordered By: Rosa Reinoso Print Language: Faroese Care Plan Goals: Recommend the patient to seek assistance with primary care, addiction Medicine Recommend the patient to obtain blood work within 1 day of discharge Recommend patient to discontinue use of heroin Recommend patient to discontinue use of ETOH Health Concerns: As above Plan of Treatment: As above Assessment: Left hospital against medical advice. The patient result medically ready for discharge home. The patient demonstrates capacity to make his own decisions against his better interest. Patient autonomy respected, patient left hospital against medical advice Discharge Date/Time: 10/21/24 09:16
== END 2024-10-21 09:16 | disposition left against medical advice (07) | DRG 770 ==
LOC: HO.ED 16:29 → HO.EDOVER 16:33 → HO.S3 19:43
PROVIDERS: Registered Nurse Emergency; Admitting Provider Internal Medicine; Emergency Provider Emergency Medicine; PCP Internal Medicine; Visit Provider Hospitalist
DX: F10.239 Alcohol dependence with withdrawal, unspecified (principal); E87.6 Hypokalemia; F17.210 Nicotine dependence, cigarettes, uncomplicated; Y90.8 Blood alcohol level of 240 mg/100 ml or more; F10.229 Alcohol dependence with intoxication, unspecified; F11.93 Opioid use, unspecified with withdrawal; Z71.6 Tobacco abuse counseling
CPT/HCPCS: 36415; 70450; 71045; 80048; 80053; 80307; 81003; 83735; 85025; 86704; 86706; 86803; 87340; 93005; 99285; J1650; J2405; J2560; J3411; J7120; S9485

== ENCOUNTER → 2024-10-19 12:50 | Outpatient (BNV) | payer MEDICAID, SELFPAY | PROVIDERS: Emergency Provider Emergency Medicine; Visit Provider Radiology Diagnostic Radiology | DX: R41.82 Altered mental status, unspecified (principal); R55 Syncope and collapse | CPT/HCPCS: 70450; 71045 ==

== ENCOUNTER → 2024-10-19 13:18 | Outpatient (BNV) | payer MEDICAID, SELFPAY | PROVIDERS: Admitting Provider Internal Medicine; Emergency Provider Emergency Medicine; PCP Internal Medicine; Visit Provider Internal Medicine | DX: R41.82 Altered mental status, unspecified (principal) | CPT/HCPCS: 93010 ==

== ENCOUNTER → 2024-10-19 16:23 | Outpatient (BNV) | payer OTHER, SELFPAY | PROVIDERS: Admitting Provider Internal Medicine; Emergency Provider Emergency Medicine; PCP Internal Medicine; Visit Provider Nurse Practitioner Psychiatric/Mental Health | DX: F11.93 Opioid use, unspecified with withdrawal (principal); F10.939 Alcohol use, unspecified with withdrawal, unspecified | CPT/HCPCS: 99232 ==

== ENCOUNTER → 2024-10-19 16:23 | Outpatient (BNV) | payer MEDICAID, SELFPAY | PROVIDERS: Admitting Provider Internal Medicine; Emergency Provider Emergency Medicine; PCP Internal Medicine; Visit Provider Internal Medicine | DX: E87.6 Hypokalemia (principal); F10.929 Alcohol use, unspecified with intoxication, unspecified | CPT/HCPCS: 99223; 99232 ==